=== PATIENT | female | born 1955 | race Caucasian/White ===

== ENCOUNTER 2019-07-06 15:30 | Emergency (ER) | payer OTHER ==
[~2019-07-06] VITALS: Ht 172.7 cm; Wt 56.7 kg
[~2019-07-06 15:30] MED LIST: ESCI10TA PO; ESTR42.53 VG; LORA-259 PO; NORCO5 PO; SYN50 PO
[2019-07-06] MEDS ORDERED: PRO20 PO (15:45)
[2019-07-06] MEDS ORDERED: GABA-533 PO (15:45)
[2019-07-06 15:46] VITALS: BP_SYST 144
[2019-07-06] MEDS ORDERED: OMEP-268 PO (15:46)
[2019-07-06] MEDS ORDERED: QUET50TA15 PO (15:46)
[2019-07-06] MEDS ORDERED: KETOROLAC TROMETHAMINE 60 MG/2 ML VIAL IM ONE (16:00)
[2019-07-06 16:29] LABS: BASOPHILS % (AUTO) 0.6 % (0.0-2.0); EOSINOPHILS # (AUTO) 0.1 K/uL (0.0-0.4); EOSINOPHILS % (AUTO) 1.7 % (0.0-4.0); HEMATOCRIT 32.1 % (36-48); HEMOGLOBIN 10.8 g/dL (12.0-16.0); LYMPHOCYTES # (AUTO) 1.9 K/uL (1.0-5.5); LYMPHOCYTES % (AUTO) 35.5 % (20.5-51.5); MEAN CORPUSCULAR HEMOGLOBIN 32 pg (27-31); MEAN CORPUSCULAR HGB CONC 34 % (32-36); MEAN CORPUSCULAR VOLUME 95 fL (79.0-98.0); MONOCYTES # (AUTO) 0.4 K/uL (0.0-1.0); NEUTROPHILS # (AUTO) 2.9 K/uL (1.8-7.7); NEUTROPHILS % (AUTO) 54.2 % (40.0-70.0); PLATELET COUNT (AUTO) 235 K/uL (130-430); RED BLOOD CELL COUNT(AUTO) 3.37 MIL/uL (4.2-6.2); RED CELL DISTRIBUTION WIDTH 13.4 % (9.0-15.0); WHITE BLOOD COUNT (AUTO) 5.3 K/uL (4.8-10.8)
[2019-07-06 16:45] LABS: CALCIUM 8.6 mg/dL (8.4-11.0); CREATININE 1.73 mg/dL (0.55-1.30); POTASSIUM 3.8 mmol/L (3.5-5.1)
[2019-07-06 16:50] LABS: ALBUMIN 3.3 g/dL (3.4-4.8); TOTAL BILIRUBIN 0.4 mg/dL (0.0-1.0)
[2019-07-06] MEDS ORDERED: cefTRIAXone 1 GM VIAL IM ONE (17:00)
[2019-07-06 17:31] VITALS: BP_SYST 144
== END 2019-07-06 17:31 | disposition home or self-care (01) ==
LOC: SED 15:30
DX: N39.0 Urinary tract infection, site not specified (principal); E07.9 Disorder of thyroid, unspecified; F41.9 Anxiety disorder, unspecified; Z79.899 Other long term (current) drug therapy
CPT/HCPCS: 36415; 80053; 81002; 83605; 85025; 96372; 99284; J0696; J1885

== ENCOUNTER 2020-01-10 17:59 | Emergency (ER) | payer OTHER ==
[~2020-01-10] VITALS: Ht 172.7 cm; Wt 54.4 kg
[~2020-01-10 17:59] MED LIST changes: -ESCI10TA PO; -ESTR42.53 VG; +GABA-533 PO; -LORA-259 PO; -NORCO5 PO; +OMEP-268 PO; +PRO20 PO; +QUET50TA15 PO; -SYN50 PO
[2020-01-10 18:07] VITALS: BP_SYST 144
--- NOTE | 2020-01-10 18:07 | NUR ---
Placed in room 05 . Placed on motor tester, blood pressure machine and pulse oximeter. To gown for exam. Side rails up.
--- NOTE | 2020-01-10 18:09 | NUR ---
EKG performed at BS by NANCI MURPHY. Physician given copy of EKG for review.
--- NOTE | 2020-01-10 18:10 | NUR ---
Patient presented to ER C/O CHEST pain. Patient A&Ox4, ambulatory, afebrile, skin pink & warm, pain 5/10, denies N/V/D. Patient states she has chest pain, dull radiating to bilat shoulders.
--- NOTE | 2020-01-10 18:12 | NUR ---
ER Dr. SMITH at bedside examining patient.
[2020-01-10 18:36] LABS: BASOPHILS % (AUTO) 0.6 % (0.0-2.0); EOSINOPHILS # (AUTO) 0.2 K/uL (0.0-0.4); EOSINOPHILS % (AUTO) 3.2 % (0.0-4.0); HEMATOCRIT 34.6 % (36-48); HEMOGLOBIN 11.7 g/dL (12.0-16.0); LYMPHOCYTES # (AUTO) 1.6 K/uL (1.0-5.5); LYMPHOCYTES % (AUTO) 26.6 % (20.5-51.5); MEAN CORPUSCULAR HEMOGLOBIN 33 pg (27-31); MEAN CORPUSCULAR HGB CONC 34 % (32-36); MEAN CORPUSCULAR VOLUME 96 fL (79.0-98.0); MONOCYTES # (AUTO) 0.5 K/uL (0.0-1.0); MONOCYTES % (AUTO) 8.4 % (1.7-9.3); NEUTROPHILS # (AUTO) 3.7 K/uL (1.8-7.7); NEUTROPHILS % (AUTO) 61.2 % (40.0-70.0); PLATELET COUNT (AUTO) 205 K/uL (130-430); RED CELL DISTRIBUTION WIDTH 14.3 % (9.0-15.0)
[2020-01-10 18:51] LABS: CALCIUM 8.7 mg/dL (8.4-11.0); CREATININE 1.64 mg/dL (0.55-1.30); POTASSIUM 3.6 mmol/L (3.5-5.1)
[2020-01-10 18:57] LABS: ALBUMIN 3.6 g/dL (3.4-4.8); TOTAL BILIRUBIN 0.6 mg/dL (0.0-1.0)
--- NOTE | 2020-01-10 19:03 | NUR ---
REPORT TO JJ SELF
[2020-01-10] MEDS ORDERED: KETOROLAC TROMETHAMINE 60 MG/2 ML VIAL IM ONE (20:00)
[2020-01-10 20:35] VITALS: BP_SYST 144
--- NOTE | 2020-01-10 20:35 | NUR ---
Patient given written and verbal discharge instructions and verbalizes understanding. ER MD discussed with patient the results and treatment provided. Patient in stable condition. ID arm band Patient educated on pain management and to follow up with PMD. Opportunity for questions provided and answered. Medication side effect fact sheet provided.
== END 2020-01-10 20:35 | disposition home or self-care (01) ==
LOC: SED 17:59
DX: R07.89 Other chest pain (principal); F41.9 Anxiety disorder, unspecified; E07.9 Disorder of thyroid, unspecified; N28.9 Disorder of kidney and ureter, unspecified; Z79.899 Other long term (current) drug therapy
CPT/HCPCS: 36415; 71045; 80053; 82550; 83880; 84484; 85025; 93005; 96372; 99285; J1885

== ENCOUNTER 2022-09-15 17:21 | Inpatient (IN) | payer OTHER ==
[~2022-09-15] VITALS: Ht 170.2 cm; Wt 54.5 kg
[2022-09-15 17:26] VITALS: BP_SYST 153
[2022-09-15] MEDS ORDERED: CYANOCOBALAMIN (VITAMIN B-12) 1,000 MCG TABLET PO ONE (17:45)
[2022-09-15] MEDS ORDERED: THIAMINE HCL 100 MG in NS 50 ML IV ONE (17:45)
[2022-09-15] MEDS ORDERED: CHOLECALCIFEROL (VITAMIN D3) 5,000 UNIT TABLET PO ONE (17:45)
[2022-09-15] MEDS ORDERED: FOLIC ACID 5 MG/ML VIAL IV ONE (17:45)
[2022-09-15] MEDS ORDERED: NACL 0.9% 1,000 ML IV ONE (17:45)
[2022-09-15 18:06] LABS: BASOPHILS % (AUTO) 0.6 % (0.0-2.0); EOSINOPHILS # (AUTO) 0.2 K/uL (0.0-0.4); EOSINOPHILS % (AUTO) 2.9 % (0.0-4.0); HEMATOCRIT 35.2 % (36-48); HEMOGLOBIN 11.7 g/dL (12.0-16.0); LYMPHOCYTES # (AUTO) 1.8 K/uL (1.0-5.5); LYMPHOCYTES % (AUTO) 32.4 % (20.5-51.5); MEAN CORPUSCULAR HEMOGLOBIN 31 pg (27-31); MEAN CORPUSCULAR HGB CONC 33 % (32-36); MEAN CORPUSCULAR VOLUME 94 fL (79.0-98.0); MONOCYTES # (AUTO) 0.6 K/uL (0.0-1.0); NEUTROPHILS # (AUTO) 3.1 K/uL (1.8-7.7); NEUTROPHILS % (AUTO) 54.1 % (40.0-70.0); PLATELET COUNT (AUTO) 206 K/uL (130-430); RED BLOOD CELL COUNT(AUTO) 3.74 MIL/uL (4.2-6.2); RED CELL DISTRIBUTION WIDTH 14.5 % (9.0-15.0); WHITE BLOOD COUNT (AUTO) 5.7 K/uL (4.8-10.8)
[2022-09-15] MEDS ORDERED: FOLIC ACID 1 MG, THIAMINE HCL 100 MG, MAGNESIUM SULFATE 1 GM, MVI 10 ML in NACL 0.9% 1,... IV ONE (18:15)
[2022-09-15 18:20] LABS: ANION GAP 8 (5-15); CALCIUM 9.3 mg/dL (8.4-11.0); CHLORIDE 103 mmol/L (98-107); CREATININE 1.89 mg/dL (0.55-1.30); GFR AFRICAN AMERICAN 34 mL/min (>90); GLUCOSE 89 mg/dL (70-99); UREA NITROGEN, BLOOD 19 mg/dL (8-21)
[2022-09-15 18:34] LABS: ALANINE AMINOTRANSFERASE 27 U/L (12-78); ALBUMIN 3.6 g/dL (3.4-4.8); ASPARTATE AMINOTRANSFERASE 26 U/L (10-37); THYROID STIMULATING HORMONE 0.52 uIu/mL (0.34-4.82); TOTAL BILIRUBIN 0.5 mg/dL (0.0-1.0)
[2022-09-15 18:50] LABS: BILIRUBIN,URINE NEGATIVE (NEGATIVE); BLOOD, URINE NEGATIVE (NEGATIVE); CLARITY/URINE CLEAR (CLEAR); GLUCOSE,URINE NEGATIVE (NEGATIVE); KETONES,URINE NEGATIVE (NEGATIVE); LEUKOCYTE ESTERASE ,URINE NEGATIVE (NEGATIVE); NITRITE, URINE NEGATIVE (NEGATIVE); PH,URINE 7.5 (5.0-8.0); PROTEIN URINE NEGATIVE (NEGATIVE); UROBILINOGEN,URINE 0.2 (0.2-1.0)
[2022-09-15] MEDS ORDERED: FOLIC ACID 1 MG, MVI 10 ML in NACL 0.9% 1,000 ML IV ONE (19:00)
[2022-09-15] MEDS ORDERED: THIAMINE HCL 100 MG, MAGNESIUM SULFATE 1 GM in NS 100 ML IV ONE (19:00)
[2022-09-15 19:13] LABS: COLOR,URINE STRAW (YELLOW)
[2022-09-15 23:59] VITALS: BP_SYST 146
[2022-09-16 01:54] VITALS: BP_SYST 146
[2022-09-16] MEDS: LORazepam 2 MG/ML VIAL IVP PRN ×4 (04:20→21:46)
[2022-09-16 09:16] VITALS: BP_SYST 162
[2022-09-16 11:33] VITALS: BP_SYST 141
[2022-09-16] MEDS ORDERED: ACETAMINOPHEN 325 MG TABLET PO PRN ×3 (14:30→18:45)
[2022-09-16] MEDS ORDERED: GABA-529 PO (15:52)
[2022-09-16] MEDS ORDERED: FAMO-279 PO (15:52)
[2022-09-16] MEDS ORDERED: fluoxetine PO (16:20)
[2022-09-16 18:12] VITALS: BP_SYST 130
[2022-09-16] MEDS ORDERED: HYDROcodone/ACETAMIN 10-325 MG TAB PO PRN (18:30)
[2022-09-16] MEDS ORDERED: ONDANSETRON HCL 4 MG/2 ML VIAL IVP PRN (18:30)
[2022-09-16] MEDS ORDERED: HYDROcodone/ACETAMIN 5-325 MG TAB (NORCO/ VICODIN) PO PRN (18:30)
[2022-09-16] MEDS ORDERED: NALOXONE HCL 0.4 MG/ML AMP (NARCAN) IVP PRN ×2 (18:30)
[2022-09-16 20:00] VITALS: BP_SYST 140
[2022-09-16] MEDS ORDERED: QUEtiapine FUMARATE 25 MG TABLET PO SCH (21:00)
[2022-09-16] MEDS: FAMOTIDINE 20 MG TABLET PO SCH (21:35)
[2022-09-16] MEDS: NORMAL SALINE 5 ML DISP.SYRIN IVF SCH (21:35)
[2022-09-16] MEDS: FLUoxetine HCL 20 MG CAPSULE (PROzac) PO SCH (21:35)
[2022-09-16] MEDS: GABAPENTIN 300 MG CAPSULE PO SCH (21:36)
[2022-09-17 00:44] VITALS: BP_SYST 120
[2022-09-17] MEDS: NORMAL SALINE 5 ML DISP.SYRIN IVF SCH (06:00)
[2022-09-17 07:08] LABS: BASOPHILS % (AUTO) 0.8 % (0.0-2.0); EOSINOPHILS # (AUTO) 0.2 K/uL (0.0-0.4); HEMATOCRIT 30.5 % (36-48); HEMOGLOBIN 10.2 g/dL (12.0-16.0); LYMPHOCYTES # (AUTO) 1.8 K/uL (1.0-5.5); LYMPHOCYTES % (AUTO) 35.8 % (20.5-51.5); MEAN CORPUSCULAR HEMOGLOBIN 32 pg (27-31); MEAN CORPUSCULAR HGB CONC 33 % (32-36); MEAN CORPUSCULAR VOLUME 95 fL (79.0-98.0); MONOCYTES # (AUTO) 0.5 K/uL (0.0-1.0); MONOCYTES % (AUTO) 9.8 % (1.7-9.3); NEUTROPHILS # (AUTO) 2.4 K/uL (1.8-7.7); NEUTROPHILS % (AUTO) 49.6 % (40.0-70.0); PLATELET COUNT (AUTO) 190 K/uL (130-430); RED CELL DISTRIBUTION WIDTH 14.6 % (9.0-15.0); WHITE BLOOD COUNT (AUTO) 4.9 K/uL (4.8-10.8)
[2022-09-17 07:42] LABS: CALCIUM 8.4 mg/dL (8.4-11.0); CREATININE 1.63 mg/dL (0.55-1.30); PHOSPHORUS 3.2 mg/dL (2.7-4.5)
[2022-09-17 07:58] VITALS: BP_SYST 134
[2022-09-17] MEDS: FAMOTIDINE 20 MG TABLET PO SCH (08:13)
[2022-09-17] MEDS: GABAPENTIN 300 MG CAPSULE PO SCH (08:13)
[2022-09-17] MEDS: LORazepam 2 MG/ML VIAL IVP PRN (08:14)
[2022-09-17] MEDS: FLUoxetine HCL 20 MG CAPSULE (PROzac) PO SCH (08:14)
[2022-09-17 12:00] VITALS: BP_SYST 119
[2022-09-17 16:00] VITALS: BP_SYST 120
[2022-09-17 20:01] VITALS: BP_SYST 120
[2022-09-18] MEDS ORDERED: MEMANTINE HCL 5 MG TABLET PO SCH (09:00)
== END 2022-09-17 21:56 | disposition home or self-care (01) | DRG 683 ==
LOC: SED 17:21 → SMU 22:28
PROVIDERS: ADMIT Specialist; ATTEND Specialist
DX: N17.9 Acute kidney failure, unspecified (principal); F02.83 Dementia in other diseases classified elsewhere, unspecified severity, with mood disturbance; K21.9 Gastro-esophageal reflux disease without esophagitis; R32 Unspecified urinary incontinence; R29.6 Repeated falls; F32.A Depression, unspecified; F41.9 Anxiety disorder, unspecified; G30.9 Alzheimer's disease, unspecified; D64.9 Anemia, unspecified; I12.9 Hypertensive chronic kidney disease with stage 1 through stage 4 chronic kidney disease, or unspecified chronic kidney disease; N18.9 Chronic kidney disease, unspecified; Z91.09 Other allergy status, other than to drugs and biological substances
CPT/HCPCS: 36415; 70450-TC; 70551; 71045; 76376; 80048; 80053; 81003; 83735; 83880; 84100; 84439; 84443; 84484; 85025; 93005; 93306; 96361; 96365; 96368; 99285; J2060; J3411; J3475; J3490; J7030